=== PATIENT | male | born 1955 | race Caucasian/White ===

== ENCOUNTER 2017-10-22 13:31 | Inpatient (IN) | payer MEDICAID ==
[~2017-10-22] VITALS: Ht 177.8 cm; Wt 79.8 kg
--- NOTE | 2017-10-22 13:35 | NUR ---
PRESENTS TO ER C/O CHEST PAIN AND SOB X 3 DAYS. PATIENT IS A/OX 4. BREATHING EVEN AND UNLABORED AT THIS TIME. NO SOB. VITALS STABLE, NAD. PATIENT ALSO HAS LEFT FOOT WOUND, WITH PRIOR AMPUTATION OF LEFT 1ST AND 2ND DIGITS. FOOT IS RED AND SWOLLEN. SAFETY AND COMFORT MEASURES IN PLACE. AWAITING MD ORDERS.
--- NOTE | 2017-10-22 13:47 | NUR ---
CALLED NURSING SUP. FOR TELE BED.
[2017-10-22] MEDS ORDERED: NITROGLYCERIN PACKET 1 GM PACKET ONE (13:58)
[2017-10-22] MEDS ORDERED: ASPIRIN 325 MG TABLET ONE (13:58)
[2017-10-22] MEDS ORDERED: NITROGLYCERIN PACKET 1 GM PACKET TD ONE (14:00)
[2017-10-22] MEDS ORDERED: ASPIRIN 325 MG TABLET PO ONE (14:00)
--- NOTE | 2017-10-22 14:00 | NUR ---
NEW IV STARTED ON LAC, 20 G. BLOOD DRAWN AND SENT TO LAB.
[2017-10-22 14:06] LABS: BASOPHILS # (AUTO) 0.1 /CMM (0.0-0.2); BASOPHILS % (AUTO) 0.7 % (0.0-2.0); EOSINOPHILS # (AUTO) 0.3 /CMM (0.0-0.7); EOSINOPHILS % (AUTO) 2.8 % (0.0-6.0); HEMATOCRIT 37 % (39-51); HEMOGLOBIN 12.6 g/dL (13.5-17.5); LYMPHOCYTES # (AUTO) 3.5 /CMM (0.8-4.8); LYMPHOCYTES % (AUTO) 33.8 % (20.0-44.0); MEAN CORPUSCULAR HEMOGLOBIN 27 PG (26.0-33.0); MEAN CORPUSCULAR HGB CONC 34 g/dl (31.0-36.0); MEAN CORPUSCULAR VOLUME 80 fL (80-96); MONOCYTES # (AUTO) 0.9 /CMM (0.1-1.30); MONOCYTES % (AUTO) 8.9 % (2.0-12.0); NEUTROPHILS # (AUTO) 5.6 /CMM (1.8-8.9); NEUTROPHILS % (AUTO) 53.8 % (43.0-81.0); PLATELET COUNT (AUTO) 464 /CMM (150-450); RDW COEFFICIENT OF VARIATION 14.9 (11.5-15.0); RED BLOOD CELL COUNT(AUTO) 4.61 MIL/uL (4.5-6.0); WHITE BLOOD COUNT (AUTO) 10.4 K/uL (4.3-11.0)
--- NOTE | 2017-10-22 14:06 | NUR ---
FISHING VESSEL DECKHAND AT BEDSIDE.
[2017-10-22 14:20] LABS: CALCIUM, SERUM 9.4 mg/dL (8.5-10.1); CARBON DIOXIDE 28 mmol/L (21-32); CHLORIDE 102 mmol/L (98-107); CREATININE 0.9 mg/dL (0.6-1.3); GLUCOSE 259 mg/dL (74-106); POTASSIUM 4.1 mmol/L (3.5-5.1); SODIUM SERUM 135 mmol/L (136-145); UREA NITROGEN, BLOOD 15 mg/dL (7-18)
[2017-10-22 14:24] LABS: TROPONIN I < 0.017 ng/mL (0.00-0.056)
[2017-10-22 14:32] LABS: B-TYPE NATRIURETIC PEPTIDE 1260 PG/ML (0-125)
[2017-10-22] MEDS ORDERED: INSU100V7 SQ (14:46)
[2017-10-22] MEDS ORDERED: BLOO-668 IN (14:46)
[2017-10-22] MEDS ORDERED: INSU100V11 SQ (14:46)
[2017-10-22 14:56] LABS: D-DIMER 0.93 mg/L(FEU (0.17-0.50); INR 0.93 (0.87-1.13)
--- NOTE | 2017-10-22 15:18 | NUR ---
TELE 304-2
--- NOTE | 2017-10-22 15:20 | NUR ---
PATIENT SIGNED CONSENT FORM FOR LEFT FOOT DEBRIDEMENT PER DR. GU.
--- NOTE | 2017-10-22 15:22 | NUR ---
DR.RUTHERFORD ELEN RETAIL PERFORMANCE COACH
--- NOTE | 2017-10-22 15:25 | NUR ---
DR. GU AT BEDSIDE FOR LEFT FOOT DEBRIDEMENT.
[2017-10-22] MEDS ORDERED: VANCOMYCIN 1 GM in IV D5W 250 ML IV ONE (15:30)
[2017-10-22] MEDS ORDERED: PIPERACILLIN /TAZOBACTAM 3.375 G in IV D5W 50 ML IV ONE (15:30)
--- NOTE | 2017-10-22 15:30 | NUR ---
WOUND CARE RENDERED S/P WOUND DEBRIDEMENT.
--- NOTE | 2017-10-22 15:38 | NUR ---
REPORT GIVEN TO ALDEN WHITMAN FOR MITESH UPON ADMISSION.
[2017-10-22 16:00] VITALS: BP 176/83
--- NOTE | 2017-10-22 16:15 | NUR ---
TELE/OCCUPATIONAL THERAPY ASSISTANT. PATIENT ADMITTED FROM ER IN STABLE CONDITION FOR DIAGNOSIS OF CHEST PAIN, LEFT FOOT OSTEOMYELITIS. A/O X 3. NO SIGNS OF ACUTE DISTRESS. NO COMPLAIN OF PAIN OR DISCOMFORT. ON TELE MONITOR WITH SINUS RHYTHM IN 80'S. TOLERATED WELL. S/P DEBRIDEMENT TO LEFT FOOT IN ER TOLERATED WELL. ALL NEEDS ATTENDED TO. CALL LIGHT WITHIN REACH. WILL CONTINUE TO MONITOR TO ENSURE SAFETY.
--- NOTE | 2017-10-22 16:21 | NUR ---
PATIENT TRANSPORTED TO [facility] [place] [facility]. RN, ALDEN TO PROVIDE MITESH.
--- NOTE | 2017-10-22 16:50 | NUR ---
TELE/RN PAGED DR JOSÉ KUMAR PAGELo FOR ADMISSION ORDERS.
[2017-10-22 17:31] VITALS: BP 176/83
[2017-10-22] MEDS ORDERED: MAG HYDROX/AL HYDROX/SIMETH 30 ML UDC PO PRN (18:00)
[2017-10-22] MEDS ORDERED: DEXTROSE 50%-WATER 50 ML DISP.SYRIN IV PRN (18:00)
[2017-10-22] MEDS ORDERED: MAGNESIUM HYDROXIDE 30 ML UDC PO PRN (18:00)
[2017-10-22] MEDS ORDERED: ACETAMINOPHEN 325 MG TABLET PO PRN (18:00)
[2017-10-22] MEDS ORDERED: Z GUARD REMEDY 2 OZ OINT TP PRN (18:00)
[2017-10-22] MEDS ORDERED: ONDANSETRON HCL/PF 4 MG/2 ML VIAL IVP PRN (18:00)
[2017-10-22] MEDS ORDERED: FEE PK DOSING 1 MIN EA MC ONE (18:26)
--- NOTE | 2017-10-22 18:29 | NUR ---
TELE/RN CLOSING NOTE PATIENT IN BED IN STABLE CONDITION. A/O X 4. NO SIGNS OF ACUTE DISTRESS. NO COMPLAIN OF PAIN OR DISCOMFORT. ON TELE MONITOR WITH SINUS RHYTHM IN 80'S. ALL NEEDS ATTENDED TO. CALL LIGHT WITHIN REACH. WILL ENDORSE TO NEXT SHIFT FOR CONTINUITY OF CARE.
[2017-10-22] MEDS ORDERED: CLONIDINE HCL 0.1 MG TABLET PO PRN (18:30)
[2017-10-22] MEDS ORDERED: MORPHINE SULFATE INJ 4 MG/ML DISP.SYRIN IV PRN (18:30)
[2017-10-22] MEDS: METOPROLOL TARTRATE 25 MG TABLET PO SCH ×2 (18:36→20:39)
[2017-10-22] MEDS: HYDROCODONE/APAP 5/325MG 1 EACH TABLET PO PRN (18:36)
--- NOTE | 2017-10-22 19:30 | NUR ---
POLYTECHNIC REGISTRAR NOTE: PATIENT RESTING IN BED, NO ACUTE DISTRESS NOTED. BREATHING EVEN AND UNLABORED, NO SOB NOTED. IV TO LAC IN PLACE. DRESSING TO LEFT FOOT IN PLACE, NO BLEEDING NOTED. TELE READING SR 80. BED LOCKED AND IN LOWEST POSITION, CALL LIGHT IN REACH. WILL CONTINUE TO MONITOR.
[2017-10-22 20:00] VITALS: BP 154/88
[2017-10-22] MEDS: NITROGLYCERIN PACKET 1 GM PACKET TOP SCH (20:39)
[2017-10-22] MEDS: ENOXAPARIN SODIUM 40 MG/0.4 ML DISP.SYRIN SQ SCH (20:43)
[2017-10-22] MEDS ORDERED: METOPROLOL TARTRATE 25 MG TABLET PO SCH (21:00)
[2017-10-22] MEDS: BLOOD SUGAR DIAGNOSTIC 1 EACH STRIP VI SCH (22:09)
[2017-10-22] MEDS: *INSULIN REGULAR(HUMULIN R)HUM 100 UNIT/ML VIAL SQ PRN (22:10)
--- NOTE | 2017-10-22 22:30 | NUR ---
C4 PLANNER NOTE: PATIENT BLOOD SUGAR LEVEL 331 MG/DL, PATIENT TO RECEIVE 8 UNITS PER SLIDING SCALE. NO S/S OF HYPERGLYCEMIA NOTED, WILL CONTINUE TO MONITOR.
[2017-10-22] MEDS ORDERED: PIPERACILLIN /TAZOBACTAM 3.375 G VIAL IV ONE (23:50)
[2017-10-23] VITALS: BP 143/77
[2017-10-23] MEDS: PIPERACILLIN /TAZOBACTAM 3.375 G in IV NS 0.9% 50 ML IV SCH ×5 (00:19→23:55)
[2017-10-23] MEDS: HYDROCODONE/APAP 5/325MG 1 EACH TABLET PO PRN ×3 (00:25→21:25)
--- NOTE | 2017-10-23 00:30 | NUR ---
PAINT GRINDER [employer] [place] NOTE: PATIENT COMPLAINS OF PAIN TO CHEST, NON RADIATING, 02/22, NORCO 5/325MG 1 TAB ORAL GIVEN PER MD ORDER. WILL CONTINUE TO MONITOR.
[2017-10-23] MEDS: VANCOMYCIN 1 GM in IV NS 0.9% 250 ML IV SCH ×3 (00:58→17:04)
[2017-10-23 05:54] LABS: BASOPHILS # (AUTO) 0.1 /CMM (0.0-0.2); BASOPHILS % (AUTO) 0.9 % (0.0-2.0); EOSINOPHILS # (AUTO) 0.3 /CMM (0.0-0.7); EOSINOPHILS % (AUTO) 2.8 % (0.0-6.0); HEMATOCRIT 32 % (39-51); HEMOGLOBIN 10.8 g/dL (13.5-17.5); LYMPHOCYTES # (AUTO) 4.1 /CMM (0.8-4.8); LYMPHOCYTES % (AUTO) 33.4 % (20.0-44.0); MEAN CORPUSCULAR HEMOGLOBIN 28 PG (26.0-33.0); MEAN CORPUSCULAR HGB CONC 33 g/dl (31.0-36.0); MEAN CORPUSCULAR VOLUME 83 fL (80-96); MONOCYTES # (AUTO) 1.3 /CMM (0.1-1.30); MONOCYTES % (AUTO) 10.6 % (2.0-12.0); NEUTROPHILS # (AUTO) 6.4 /CMM (1.8-8.9); NEUTROPHILS % (AUTO) 52.3 % (43.0-81.0); PLATELET COUNT (AUTO) 359 /CMM (150-450); RDW COEFFICIENT OF VARIATION 15.5 (11.5-15.0); RED BLOOD CELL COUNT(AUTO) 3.92 MIL/uL (4.5-6.0); WHITE BLOOD COUNT (AUTO) 12.3 K/uL (4.3-11.0)
[2017-10-23] MEDS ORDERED: PIPERACILLIN /TAZOBACTAM 3.375 G VIAL IV ONE (05:56)
[2017-10-23] MEDS: NITROGLYCERIN PACKET 1 GM PACKET TOP SCH ×3 (06:00→21:23)
--- NOTE | 2017-10-23 06:30 | NUR ---
MANAGER RENTAL NOTE: PATIENT RESTING IN BED, NO ACUTE DISTRESS NOTED. BREATHING EVEN AND UNLABORED, NO SOB NOTED. IV TO LAC IN PLACE. DRESSING TO LEFT FOOT CHANGED WITH WET TO DRY DRESSING AND WRAPPED WITH KERLIX AND SECURED WITH TAPE. TELE READING SR 70-80. PATIENT BLOOD SUGAR LEVEL 196 MG/DL, TO RECEIVE 3 UNITS PER SLIDING SCALE. NO S/S OF HYPER/HYPOGLYCEMIA NOTED. BED LOCKED AND IN LOWEST POSITION, CALL LIGHT IN REACH. WILL ENDORSE TO DAY NURSE TO CONTINUE WITH PLAN OF CARE.
[2017-10-23] MEDS: BLOOD SUGAR DIAGNOSTIC 1 EACH STRIP VI SCH ×4 (06:35→21:14)
[2017-10-23 06:51] LABS: CALCIUM, SERUM 8.5 mg/dL (8.5-10.1); MAGNESIUM 1.7 mg/dL (1.8-2.4); PHOSPHORUS 3.8 mg/dL (2.5-4.9); POTASSIUM 4.3 mmol/L (3.5-5.1)
[2017-10-23] MEDS: INSULIN REGULAR, HUMAN 100 UNIT/ML 3 ML VIAL SQ PRN ×2 (06:51→17:34)
--- NOTE | 2017-10-23 07:24 | NUR ---
GRADER TENDER OPENING NOTES: PATIENT RECEIVED RESTING IN BED AT MODERATAE HIGH BACKREST POSITION IN NO ACUTE SIGNS OF DISTRESS. A/O X3, SAME VERBALLY RESPONSIVE, NO C/O PAIN OR DISCOMFORTS AT THIS TIME. ON ROOM AIR, BREATHING EVEN AND UNLABORED. ON TELE-MONITORING WITH CURRENT READING OF SR WITH HR ON THE 70'S. IV ACCESS AT LAC IN PLACE AND PATENT. DRESSING TO LEFT FOOT IN PLACE, NO BLEEDING NOTED. BED LOCKED AND IN LOWEST POSITION, CALL LIGHT IN REACH. WILL CONTINUE TO MONITOR.
[2017-10-23 08:00] VITALS: BP 149/73
[2017-10-23] MEDS: METOPROLOL TARTRATE 25 MG TABLET PO SCH ×2 (08:53→21:25)
[2017-10-23 10:47] LABS: CHOLESTEROL 188 mg/dL (<200); HDL CHOLESTEROL 28 mg/dL (40-60); LDL 140 mg/dL (0-99); TRIGLYCERIDES 148 mg/dL (30-150)
[2017-10-23] MEDS: ASPIRIN EC 81 MG TABLET.DR PO SCH (11:27)
[2017-10-23] MEDS: BENAZEPRIL HCL 10 MG TABLET PO SCH (11:27)
[2017-10-23] MEDS: *INSULIN REGULAR(HUMULIN R)HUM 100 UNIT/ML VIAL SQ PRN ×3 (11:46→22:04)
[2017-10-23 12:00] VITALS: BP_SYST 135; BP_SYST 136; BP_DIAS 69; BP_DIAS 75
[2017-10-23] MEDS: Magnesium 1GM/D5W 100ML PREMIX 100 ML IV SCH ×2 (13:44→15:21)
[2017-10-23 16:00] VITALS: BP 124/61
--- NOTE | 2017-10-23 18:32 | NUR ---
PACKAGING DESIGN ENGINEER CLOSING NOTES: PATIENT RESTING COMFORTABLY IN BED. A/O X4. ABLE TO VERBALIZED NEEDS. NO SIGNIFICANT CHANGES IN CINDITION NOTED DURING THE DAY. ON ROOM AIR, BREATHING EVEN AND UNLABORED. ON TELE-MONITORING WITH CURRENT READING OF SR WITH HR ON THE 70'S. IV ACCESS AT LAC INTACT AND PATENT. DRESSING TO LEFT FOOT IN PLACE, NO BLEEDING NOTED. KEPT BED LOCKED AND IN LOWEST POSITION, CALL LIGHT WITHIN REACH. ALL NEEDS AND CARE ATTENDED WELL. WILL ENDORSED TO GENERATION MECHANIC HELPER FOR MITESH.
[2017-10-23] MEDS: LACTOBACILLUS RHAMNOSUS GG 1 EACH CAP.SPRINK PO SCH (18:41)
--- NOTE | 2017-10-23 19:30 | NUR ---
TALENT SOURCER OPENING NOTE RECEIVED PATIENT SITTING ON BED WITH FEET DANGLING. A/O X4. ABLE TO MAKE NEEDS KNOWN. ON ROOM AIR, BREATHING EVEN AND UNLABORED. DENIES SOB AND CHEST PAIN AT THIS TIME. ON TELE-MONITORING WITH SR WITH HR ON THE 70'S. IV ACCESS AT LAC 20G, FLASHED WITH NS, INTACT AND PATENT. DRESSING TO LEFT FOOT IN PLACE, INTACT, NO SIGN OF BLEEDING. SAFETY MEASURES IN PLACE, BED IN LOW LOCKED POSITION, SIDE RAILS UPX2, CALL LIGHT WITHIN EASY REACH, WILL CONTINUE TO MONITOR.
[2017-10-23 20:00] VITALS: BP 137/70
[2017-10-23] MEDS: ENOXAPARIN SODIUM 40 MG/0.4 ML DISP.SYRIN SQ SCH (21:24)
[2017-10-23] MEDS ORDERED: ATORVASTATIN 10 MG TABLET PO SCH (22:00)
[2017-10-24] VITALS: BP 127/62
[2017-10-24] MEDS: VANCOMYCIN 1 GM in IV NS 0.9% 250 ML IV SCH ×3 (00:37→16:46)
[2017-10-24 04:00] VITALS: BP 144/72
[2017-10-24] MEDS: NITROGLYCERIN PACKET 1 GM PACKET TOP SCH ×3 (05:57→21:18)
[2017-10-24] MEDS: PIPERACILLIN /TAZOBACTAM 3.375 G in IV NS 0.9% 50 ML IV SCH ×4 (05:57→23:53)
[2017-10-24 07:05] LABS: CALCIUM, SERUM 8.7 mg/dL (8.5-10.1); CREATININE 0.9 mg/dL (0.6-1.3); POTASSIUM 4.3 mmol/L (3.5-5.1)
--- NOTE | 2017-10-24 07:10 | NUR ---
BLEACHER LARD CLOSING NOTE PATIENT IN BED RESTING COMFORTABLY, A/O X4. ABLE TO MAKE NEEDS KNOWN. ON ROOM AIR, BREATHING EVEN AND UNLABORED. DENIES SOB AND CHEST PAIN AT THIS TIME. ON TELE-MONITORING WITH SR AND HR IN 70'S. IV ACCESS AT LAC 20G, FLASHED WITH NS, INTACT AND PATENT. DRESSING TO LEFT FOOT IN PLACE, INTACT, NO SIGN OF BLEEDING. ABLE TO AMBULATE TO THE BATHROOM INDEPENDENTLY. ALL NEEDS ATTENDED, PATIENT KEPT CLEAN AND COMFORTABLE. SAFETY MEASURES IN PLACE, BED IN LOW LOCKED POSITION, SIDE RAILS UPX2, CALL LIGHT WITHIN EASY REACH, WILL ENDORSE TO AM NURSE FOR MITESH.
--- NOTE | 2017-10-24 07:12 | NUR ---
STEAM CLOTHES PRESS OPERATOR OPENING NOTES RECEIVED PT FROM NIGHTSHIFT NURSE IN STABLE CONDITION. PT IS A/O X3. NO SOB OR SIGNS OF DISTRESS NOTED. HE DENIES ANY CHEST PAIN. SINUS RHYTHM ON TELE MONITORING WITH A HR OF 78. DRESSING TO LEFT FOOT NOTED TO BE CLEAN, DRY AND INTACT. IV TO LEFT AC NOTED TO BE PATENT AND INTACT. NO REDNESS OR SIGNS OF INFILTRATION NOTED. BED IN LOW LOCKED POSITION, SIDE RAILS UP X2, CALL LIGHT WITHIN REACH. WILL CONTINUE TO MONITOR.
[2017-10-24] MEDS: BLOOD SUGAR DIAGNOSTIC 1 EACH STRIP VI SCH ×4 (07:36→21:16)
[2017-10-24] MEDS: INSULIN REGULAR, HUMAN 100 UNIT/ML 3 ML VIAL SQ PRN ×2 (07:42→12:01)
[2017-10-24 08:00] VITALS: BP 139/68
[2017-10-24] MEDS: BENAZEPRIL HCL 10 MG TABLET PO SCH (09:28)
[2017-10-24] MEDS: LACTOBACILLUS RHAMNOSUS GG 1 EACH CAP.SPRINK PO SCH ×2 (09:29→16:45)
[2017-10-24] MEDS: METOPROLOL TARTRATE 25 MG TABLET PO SCH ×2 (09:29→21:17)
[2017-10-24] MEDS: ASPIRIN EC 81 MG TABLET.DR PO SCH (09:29)
[2017-10-24] MEDS: HYDROCODONE/APAP 5/325MG 1 EACH TABLET PO PRN ×2 (09:39→21:17)
[2017-10-24 16:00] VITALS: BP 152/81
--- NOTE | 2017-10-24 18:46 | NUR ---
MS RN CLOSING NOTES PT REMAIN IN STABLE CONDITION. ALL NEEDS WERE MET DURING SHIFT AND ORDERS CARRIED OUT ACCORDINGLY. WOUND AND SKIN CARE RENDERED. ALL DUE MEDS WERE GIVEN. PAIN PROPERLY MANAGED WITH MEDICATIONS. SAFETY MEASURES REMAIN IN PLACE. WILL ENDORSE TO NIGHTSHIFT NURSE FOR MITESH
--- NOTE | 2017-10-24 19:30 | NUR ---
MS RN OPENING NOTE RECEIVED PATIENT IN BED RESTING COMFORTABLY, A/O X4 . ABLE TO MAKE NEEDS KNOWN. ON ROOM AIR, BREATHING EVEN AND UNLABORED. DENIES SOB AND CHEST PAIN AT THIS TIME. ON MED-SURGE. IV ACCESS AT LAC 20G SL, FLASHED WITH NS, INTACT AND PATENT. DRESSING TO LEFT FOOT IN PLACE, INTACT, NO SIGN OF BLEEDING. ABLE TO AMBULATE TO THE BATHROOM INDEPENDENTLY. PATIENT KEPT CLEAN AND COMFORTABLE. SAFETY MEASURES IN PLACE, BED IN LOW LOCKED POSITION, SIDE RAILS UPX2, CALL LIGHT WITHIN EASY REACH, WILL CONTINUE TO MONITOR.
[2017-10-24 20:00] VITALS: BP 128/75
[2017-10-24] MEDS: ENOXAPARIN SODIUM 40 MG/0.4 ML DISP.SYRIN SQ SCH (21:00)
--- NOTE | 2017-10-24 21:00 | NUR ---
MS RN NOTES PATIENT 2[address] WAS HELD DUE TO ANTICIPATED PROCEDURE TOMORROW. PER DR. LOZADA PATIENT IS GOING TO HAVE CTA OF ABDOMINAL AORTA.
[2017-10-24] MEDS: ATORVASTATIN 10 MG TABLET PO SCH (21:16)
[2017-10-24] MEDS: *INSULIN REGULAR(HUMULIN R)HUM 100 UNIT/ML VIAL SQ PRN (21:28)
[2017-10-25] MEDS: VANCOMYCIN 1 GM in IV NS 0.9% 250 ML IV SCH ×2 (00:41→08:00)
--- NOTE | 2017-10-25 01:30 | NUR ---
MS RN NOTES PATIENT 'S IV LINE INFILTRATED AND STARTED LEAKING WHILE RECEIVING VANCOMYCIN. STOPPED THE INFUSION IMMEDIATELY, ELEVATED THE EXTREMITY, PLACED ICE PACK ON THE EFFECTED SITE. PLACED NEW IV LINE ON THE OPPOSITE ARM, R FA 20G, REMOVED THE PREVIOUS IV LINE. CONTINUED VANCOMYCIN INFUSION. WILL CONTINUE TO MONITOR THE EFFECTED SITE.
[2017-10-25] MEDS: PIPERACILLIN /TAZOBACTAM 3.375 G in IV NS 0.9% 50 ML IV SCH ×2 (05:03→12:41)
[2017-10-25] MEDS: NITROGLYCERIN PACKET 1 GM PACKET TOP SCH ×3 (05:13→21:55)
--- NOTE | 2017-10-25 06:35 | NUR ---
MS RN CLOSING NOTE PATIENT IN BED RESTING COMFORTABLY, A/O X4. ABLE TO MAKE NEEDS KNOWN. ON ROOM AIR, BREATHING EVEN AND UNLABORED. DENIES SOB AND CHEST PAIN AT THIS TIME. ON MED-SURGE STATUS. PATIENT NPO SINCE MIDNIGHT FOR CTA OF ABDOMINAL AORTA. IV ACCESS AT R FOREARM 20G, FLASHED WITH NS, INTACT AND PATENT. DRESSING TO LEFT FOOT IN PLACE, INTACT, NO SIGN OF BLEEDING. ABLE TO AMBULATE TO THE BATHROOM INDEPENDENTLY. ALL NEEDS ATTENDED, PATIENT KEPT CLEAN AND COMFORTABLE. SAFETY MEASURES IN PLACE, BED IN LOW LOCKED POSITION, SIDE RAILS UPX2, CALL LIGHT WITHIN EASY REACH, WILL ENDORSE TO AM NURSE FOR MITESH.
[2017-10-25] MEDS: BLOOD SUGAR DIAGNOSTIC 1 EACH STRIP VI SCH ×4 (07:06→22:12)
[2017-10-25] MEDS: INSULIN REGULAR, HUMAN 100 UNIT/ML 3 ML VIAL SQ PRN ×3 (07:10→18:19)
--- NOTE | 2017-10-25 07:16 | NUR ---
MS RN NOTE PATIENT AC BLOOD GLUCOSE WAS MEASURED, READING WAS 174. SCANNED THE INSULIN WITH 3 UNIT DOSE AND SAVED. RIGHT AFTER SAVING RECALLED PATIENT IS NPO STATUS SINCE MIDNIGHT. INSULIN WAS NOT ADMINISTERED. MEDICATION ADMINISTRATION WAS UNDONE.
[2017-10-25 07:19] LABS: CALCIUM, SERUM 8.3 mg/dL (8.5-10.1); CREATININE 0.9 mg/dL (0.6-1.3); POTASSIUM 4.2 mmol/L (3.5-5.1)
--- NOTE | 2017-10-25 07:30 | NUR ---
PT RECEIVED RESTING COMFORTABLY IN BED. NO S/S OR C/O PAIN OR DISTRESS NOTED. SIDE RAILS UP X2. CALL LIGHT LEFT WITHIN REACH. WILL CONTINUE PLAN OF CARE.
[2017-10-25 08:00] VITALS: BP 125/62
[2017-10-25] MEDS ORDERED: CT SWABBABLE VALVE TRANS SET 1 EA INFUS.SET MC ONE (09:18)
[2017-10-25] MEDS ORDERED: IV NS 0.9% 250 ML IV ONE (09:18)
[2017-10-25] MEDS ORDERED: IOHEXOL-350 100 ML VIAL IV ONE (09:18)
[2017-10-25] MEDS: METOPROLOL TARTRATE 25 MG TABLET PO SCH ×2 (09:55→22:08)
[2017-10-25] MEDS: LACTOBACILLUS RHAMNOSUS GG 1 EACH CAP.SPRINK PO SCH ×2 (09:55→17:18)
[2017-10-25] MEDS: BENAZEPRIL HCL 10 MG TABLET PO SCH (09:55)
[2017-10-25] MEDS: ASPIRIN EC 81 MG TABLET.DR PO SCH (09:56)
--- NOTE | 2017-10-25 10:33 | NUR ---
WOUND CARE CONSULT WOUND CARE RECEIVED CONSULT FOR LEFT FOOT WOUND. WOUND CARE WILL DEFER CONSULT AND TREATMENT PLAN TO DPM DR GU AT THIS TIME HE IS CURRENTLY FOLLOWING. PATIENT WITH MELLISA OF 20. CALL PLACED TO DPM TO CLARIFY TREATMENT ORDERS. WILL AWAIT PHONE CALL BACK.
--- NOTE | 2017-10-25 11:05 | NUR ---
CNC SET UP OPERATOR TREATMENT ORDERS CLARIFIED WITH DR GU.
[2017-10-25] MEDS: DAKINS QUARTER STRENGTH (0.125%) 480 ML BOTTLE TOP SCH (14:33)
[2017-10-25] MEDS: GENTAMICIN 0.1% OINT 15 GM TUBE TP SCH (14:33)
[2017-10-25] MEDS ORDERED: BISACODYL SUPP (10 MG) 10 MG/SUPP.RECT SUPP.RECT RC PRN (15:00)
[2017-10-25 16:00] VITALS: BP 113/68
--- NOTE | 2017-10-25 18:55 | NUR ---
CHANGE OF SHIFT REPORT PT RESTING COMFORTABLY IN BED. NO S/S OR C/O PAIN OR DISTRESS NOTED. SIDE RAILS UP X2, CALL LIGHT LEFT WITHIN REACH. PT KEPT CLEAN, DRY, AND COMFORTABLE. NO SIGNIFICANT CHANGES SINCE PREVIOUS SHIFT. WILL GIVE REPORT TO GORAN WHITMAN.
[2017-10-25] MEDS: LEVOFLOXACIN (750 MG) 750 MG TABLET PO SCH (19:02)
--- NOTE | 2017-10-25 19:50 | NUR ---
MS RN NOTE: PATIENT RESTING IN BED, NO ACUTE DISTRESS NOTED. BREATHING EVEN AND UNLABORED, NO SOB NOTED. IV TO RFA IN PLACE. DRESSING TO LEFT FOOT IN PLACE, NO BLEEDING NOTED. NO S/S OF HYPER/HYPOGLYCEMIA NOTED. INFORMED PATIENT THAT HE WILL BE NPO AFTER MIDNIGHT AND UNABLE TO EAT OR DRINK FOR CT OF HEART TOMORROW. CONSENTS SIGNED AND IN CHART. BED LOCKED AND IN LOWEST POSITION, CALL LIGHT IN REACH. WILL CONTINUE TO MONITOR.
[2017-10-25 20:00] VITALS: BP 130/79
[2017-10-25] MEDS: AMPICILLIN SODIUM IV SCH (21:55)
[2017-10-25] MEDS: ATORVASTATIN 10 MG TABLET PO SCH (21:55)
[2017-10-25] MEDS: NS 0.9% IV SCH (21:55)
[2017-10-25] MEDS: HYDROCODONE/APAP 5/325MG 1 EACH TABLET PO PRN (21:56)
[2017-10-25] MEDS: ENOXAPARIN SODIUM 40 MG/0.4 ML DISP.SYRIN SQ SCH (21:57)
[2017-10-25] MEDS: INSULIN GLARGINE, 100 UNIT/ML CARTRIDGE SQ SCH (22:09)
[2017-10-25] MEDS: *INSULIN REGULAR(HUMULIN R)HUM 100 UNIT/ML VIAL SQ PRN (22:09)
--- NOTE | 2017-10-25 22:15 | NUR ---
MS RN NOTE: PATIENT BLOOD SUGAR LEVEL 205 MG/DL, LANTUS 20UNITS GIVEN PER MD ORDER AND TO RECEIVE 4 UNITS OF INSULIN PER SLIDING SCALE. SNACKS PROVIDED AND FOR PATIENT TO HAVE BEFORE MIDNIGHT. NO S/S OF HYPER/HYPOGLYCEMIA NOTED. WILL CONTINUE TO MONITOR.
--- NOTE | 2017-10-26 00:15 | NUR ---
MS RN NOTE: PATIENT NPO FOR CT OF HEART IN MORNING. PATIENT ATE A SANDWICH AND HAD JUICE. INSTRUCTED PATIENT THAT HE CAN NOT EAT OR DRINK ANYMORE. WILL CONTINUE TO MONITOR.
[2017-10-26] MEDS: AMPICILLIN SODIUM IV SCH ×3 (05:49→21:43)
[2017-10-26] MEDS: NS 0.9% IV SCH ×3 (05:49→21:43)
[2017-10-26] MEDS: NITROGLYCERIN PACKET 1 GM PACKET TOP SCH ×2 (05:49→13:00)
--- NOTE | 2017-10-26 06:30 | NUR ---
MS RN NOTE: PATIENT RESTING IN BED, NO ACUTE DISTRESS NOTED. BREATHING EVEN AND UNLABORED, NO SOB NOTED. IV TO RFA IN PLACE. DRESSING TO LEFT FOOT IN PLACE. BLOOD SUGAR LEVEL 175 MG/DL, NO INSULIN TO BE GIVEN SINCE PATIENT NPO. NO S/S OF HYPER/HYPOGLYCEMIA NOTED. PATIENT FOR CT OF HEART TODAY, CONSENTS SIGNED AND IN CHART. BED LOCKED AND IN LOWEST POSITION, CALL LIGHT IN REACH. WILL ENDORSE TO DAY NURSE TO CONTINUE WITH PLAN OF CARE.
[2017-10-26] MEDS: BLOOD SUGAR DIAGNOSTIC 1 EACH STRIP VI SCH ×4 (06:40→21:52)
[2017-10-26 07:37] LABS: CALCIUM, SERUM 9.1 mg/dL (8.5-10.1); CREATININE 0.8 mg/dL (0.6-1.3); POTASSIUM 4.2 mmol/L (3.5-5.1)
[2017-10-26 08:00] VITALS: BP 145/80
--- NOTE | 2017-10-26 08:25 | NUR ---
MS RN RECEIVED ON BED, AWAKE,ALERT,ORIENTED X4,NOT IN ANY FORM OF DISTRESS, RESPIRATIONS EVEN AND UNLAOBRED,NO SOB NOTED, LUNGS RE CLEAR,ABDOMEN SOFT, POSITIVE BOWEL SOUNDS,DENIES PAIN AT THIS TIME.
[2017-10-26] MEDS ORDERED: VANCOMYCIN 1 GM in IV NS 0.9% 250 ML IV SCH (09:00)
--- NOTE | 2017-10-26 09:00 | NUR ---
MS RN PATIENT WENT DOWN FOR CT ANGIO,NPO AT THIS TIME.
[2017-10-26] MEDS ORDERED: METOPROLOL TARTRATE INJ 5 MG/5 ML AMPUL ONE (09:27)
[2017-10-26] MEDS ORDERED: IOHEXOL-350 100 ML VIAL IV ONE (09:52)
[2017-10-26] MEDS ORDERED: IV NS 0.9% 250 ML IV ONE (09:53)
[2017-10-26] MEDS ORDERED: CT SWABBABLE VALVE TRANS SET 1 EA INFUS.SET MC ONE (09:53)
--- NOTE | 2017-10-26 10:10 | NUR ---
MS RN PATIENT CAME BACK, [facility] SERVED,DUE MEDS GIVEN,TOLERATED WELL.
[2017-10-26] MEDS: METOPROLOL TARTRATE 25 MG TABLET PO SCH ×2 (10:52→21:44)
[2017-10-26] MEDS: ASPIRIN EC 81 MG TABLET.DR PO SCH (10:52)
[2017-10-26] MEDS: BENAZEPRIL HCL 10 MG TABLET PO SCH (10:53)
[2017-10-26] MEDS: DAKINS QUARTER STRENGTH (0.125%) 480 ML BOTTLE TOP SCH (10:53)
[2017-10-26] MEDS: LACTOBACILLUS RHAMNOSUS GG 1 EACH CAP.SPRINK PO SCH ×2 (10:53→17:45)
[2017-10-26] MEDS: GENTAMICIN 0.1% OINT 15 GM TUBE TP SCH (10:56)
--- NOTE | 2017-10-26 12:00 | NUR ---
MS RN PATIENT WAS TRANSFERRED TO ROOM 324 BED 2, REFUSED ACCU CHECK AT THIS TIME, AT BEDSIDE.
--- NOTE | 2017-10-26 14:30 | NUR ---
MS RN DRESSING TO RIGHT FOOT DONE,ALL NEEDS ATTENDED.
[2017-10-26 16:00] VITALS: BP 164/76
--- NOTE | 2017-10-26 17:20 | NUR ---
MS RN BLOOD SUGAR - 213 - COVERAGE GIVEN,NO DISTRESS NOTED.
[2017-10-26] MEDS: LEVOFLOXACIN (750 MG) 750 MG TABLET PO SCH (17:45)
[2017-10-26] MEDS: INSULIN REGULAR, HUMAN 100 UNIT/ML 3 ML VIAL SQ PRN ×2 (17:46→21:54)
--- NOTE | 2017-10-26 19:30 | NUR ---
MSRN RESTING QUIETLY, TREAMENT PLAN AND MEDICATION REGIMEN EXPLAINED TO PATIENT WELL UNDERSTOOD. VERBALIZES LEFT FOOT PAIN, S/P DEBRIDEMENT BY DR. RUIZ FEW DAYS AGO. WANTED PAIN MEDS WITH HIS 2100 MEDS. NO OTHER NEEDS MADE.
[2017-10-26 20:00] VITALS: BP 159/72
--- NOTE | 2017-10-26 21:10 | NUR ---
RN MS NOTES, RECEIVED PATIENT FROM J CARLOS LUNDBERG FOR CONTINUITY OF CARE, PATIENT IN BED AWAKE, ALERT AND ORIENTED, ABLE TO VERBALIZED NEEDS AND CONCERNS, BREATHING EVEN AND UNLABORED, NO SOB/ACUTE DISTRESS NOTED AT THIS TIME, BED LOCKED AND IN LOWEST POSITION, CALL LIGHT W/I REACH, WILL CONTINUE TO MONITOR CLOSELY.
[2017-10-26] MEDS: ATORVASTATIN 10 MG TABLET PO SCH (21:45)
[2017-10-26] MEDS: NITROGLYCERIN 30 GM TUBE TP SCH (21:46)
[2017-10-26] MEDS: HYDROCODONE/APAP 5/325MG 1 EACH TABLET PO PRN (21:46)
[2017-10-26] MEDS: ENOXAPARIN SODIUM 40 MG/0.4 ML DISP.SYRIN SQ SCH (21:47)
[2017-10-26] MEDS: INSULIN GLARGINE, 100 UNIT/ML CARTRIDGE SQ SCH (21:56)
[2017-10-27] MEDS: NS 0.9% IV SCH ×3 (04:50→17:13)
[2017-10-27] MEDS: AMPICILLIN SODIUM IV SCH ×3 (04:50→17:13)
[2017-10-27] MEDS: NITROGLYCERIN 30 GM TUBE TP SCH (04:51)
--- NOTE | 2017-10-27 07:00 | NUR ---
RN MS NOTES, PATIENT IN BED AWAKE, ALERT AND ORIENTED, ABLE TO VERBALIZED NEEDS AND CONCERNS, BREATHING EVEN AND UNLABORED, NO SOB/ACUTE DISTRESS NOTED AT THIS TIME, BED, NO SIGNIFICANT MITESH THROUGHOUT THE SHIFT, LOCKED AND IN LOWEST POSITION, CALL LIGHT W/I REACH, WILL ENDORSE TO ONCOMING NURSE FOR CONTINUITY OF CARE
[2017-10-27] MEDS: BLOOD SUGAR DIAGNOSTIC 1 EACH STRIP VI SCH ×3 (07:30→17:07)
[2017-10-27 08:00] VITALS: BP 144/66
--- NOTE | 2017-10-27 08:00 | NUR ---
MS RN RECEIVED ON BED,AWAKE,ALERT,ORIENTED X4,NOT IN ANY FORM OF DISTRESS,RESPIRATIONS EVEN AND UNLABORED,NO SOB NOTED, LUNGS ARE CLEAR,ABDOMEN SOFT,POSITIVE BOWEL SOUNDS,DENIES PAIN AT THIS TIME,ALL NEEDS ATTENDED.
--- NOTE | 2017-10-27 09:00 | NUR ---
MS WHITMAN BREAKFAST SERVED,DUE MEDS GIVEN,TOLERATED WELL.
[2017-10-27] MEDS: ASPIRIN EC 81 MG TABLET.DR PO SCH (09:35)
[2017-10-27] MEDS: LEVOFLOXACIN (750 MG) 750 MG TABLET PO SCH (09:35)
[2017-10-27] MEDS: LACTOBACILLUS RHAMNOSUS GG 1 EACH CAP.SPRINK PO SCH ×2 (09:35→17:07)
[2017-10-27] MEDS: BENAZEPRIL HCL 10 MG TABLET PO SCH (09:36)
[2017-10-27] MEDS: METOPROLOL TARTRATE 25 MG TABLET PO SCH (09:36)
[2017-10-27] MEDS: GENTAMICIN 0.1% OINT 15 GM TUBE TP SCH (09:37)
[2017-10-27] MEDS: DAKINS QUARTER STRENGTH (0.125%) 480 ML BOTTLE TOP SCH (09:37)
[2017-10-27] MEDS ORDERED: AMLODIPINE BESYLATE 5 MG TABLET PO SCH (10:30)
[2017-10-27] MEDS ORDERED: BENA10TA2 PO (12:40)
[2017-10-27] MEDS ORDERED: LEVO750T21 PO (12:40)
[2017-10-27] MEDS ORDERED: AMLO5TAB2 PO (12:40)
[2017-10-27] MEDS ORDERED: ASPI-1152 PO (12:40)
[2017-10-27] MEDS ORDERED: METO25TA20 PO (12:40)
[2017-10-27] MEDS ORDERED: ATOR10TA PO (12:40)
[2017-10-27] MEDS: INSULIN REGULAR, HUMAN 100 UNIT/ML 3 ML VIAL SQ PRN ×2 (12:50→17:12)
--- NOTE | 2017-10-27 14:30 | NUR ---
MS RN NEW PICC LINE INSERTED BY TRAN BRYAN AT LEFT UPPER ARM W/ GOOD VENOUS RETURN, SAYS NO NEED FOR X RAY CONFIRMATION AND OK TO USE PER CHARGE NURSE.
[2017-10-27 16:00] VITALS: BP 148/67
--- NOTE | 2017-10-27 16:01 | NUR ---
MS RN PATIENT IS GONNA BE DISCHARGE,ALL NEEDS ATTENDED.
--- NOTE | 2017-10-27 18:01 | NUR ---
MS RN PATIENT WILL BE DISCHARGE SOON, ATB IV WILL BE GIVEN, BEFORE HE LEAVE.
--- NOTE | 2017-10-27 19:15 | NUR ---
RN MS NOTES, RECEIVED PATIENT SITTING UP IN BED, PT IS AWAKE, ALERT AND ORIENTED X 4, ABLE TO VERBALIZE NEEDS, BREATHING EVEN AND UNLABORED, NO SOB/ACUTE DISTRESS NOTED AT THIS TIME. IV SITE ON RIGHT AC INTACT AND PATENT, NO S/S OF INFILTRATION NOTED. CHYNA PICC LINE, INTACT AND PATENT, NO S/S OF INFILTRATION NOR INFECTION NOTED. BED LOCKED AND IN LOWEST POSITION, CALL LIGHT W/I REACH, SAFETY PRECAUTIONS OBSERVED. WILL CONTINUE TO MONITOR CLOSELY. PT AWARE THAT HE'LL BE DISCHARGE AND JUST AWAITING FOR HIS SISTER TO PICK HIM UP, EXIT CARE AND PICTURES DONE BY DAY SHIFT RN.
--- NOTE | 2017-10-27 20:15 | NUR ---
MS RN NOTES PT IN BED, REMAINS AWAKE, A/O X 4 , STABLE , NO DISTRESS NOR SOB NOTED. RESPIRATION IS EVEN AND UNLABORED. NO S/S OF HYPO/ HYPERGLYCEMIA NOTED. SISTER KELSI AT BED SIDE. DISCHARGE SUMMARY AND INSTRUCTIONS EXPLAINED TO THE PT AND SISTER, VERBALIZED UNDERSTANDING. IV ON RIGHT AC REMOVED , PRESSURE APPLIED, WITH NO BLEEDING NOTED. PER DAYSHIFT RN TO DC PT WITH CHYNA PICC LINE FOR ATB IV TO BE GIVEN BY HOME [facility]ALTH. PT WILL BE SEEN BY HOME HEALTH NURSE TOMORROW PER PT. PT WAS PICKED UP BY KELSI, IN STABLE CONDITION ASSISTED PT IN AT THE HALLWAY, ABLE TO GET IN THE ELEVATOR SAFELY. ALL BELONGINGS SENT WITH THE PT.
== END 2017-10-27 20:15 | disposition home or self-care (01) | DRG 344 ==
LOC: ER 13:33 → TELE 15:37 → MED 10-24 11:51
PROVIDERS: ADMIT Internal Medicine; ATTEND Internal Medicine
PROC: 02HV33Z Insertion of Infusion Device into Superior Vena Cava, Percutaneous Approach (ICD-10-PCS; principal; 2017-10-27)
PROC: B548ZZA Ultrasonography of Superior Vena Cava, Guidance (ICD-10-PCS; principal; 2017-10-27)
DX: E11.69 Type 2 diabetes mellitus with other specified complication (principal); M86.8X7 Other osteomyelitis, ankle and foot; E11.51 Type 2 diabetes mellitus with diabetic peripheral angiopathy without gangrene; E11.40 Type 2 diabetes mellitus with diabetic neuropathy, unspecified; M00.9 Pyogenic arthritis, unspecified; E11.621 Type 2 diabetes mellitus with foot ulcer; L03.116 Cellulitis of left lower limb; E87.1 Hypo-osmolality and hyponatremia; E11.65 Type 2 diabetes mellitus with hyperglycemia; L97.429 Non-pressure chronic ulcer of left heel and midfoot with unspecified severity; E11.622 Type 2 diabetes mellitus with other skin ulcer; I10 Essential (primary) hypertension; Z79.4 Long term (current) use of insulin; L97.529 Non-pressure chronic ulcer of other part of left foot with unspecified severity; F17.200 Nicotine dependence, unspecified, uncomplicated; Z89.422 Acquired absence of other left toe(s); I25.119 Atherosclerotic heart disease of native coronary artery with unspecified angina pectoris
CPT/HCPCS: 36415; 71045-TC; 73630-TC; 75574; 80048-TC; 80061-TC; 80202-TC; 82962-TC; 83735-TC; 83880; 84100-TC; 84484-TC; 85025-TC; 85378-TC; 85730-TC; 86140-TC; 87070-TC; 87081-TC; 87186-TC; 93307-TC; 93971-TC; A4216; A4606; A6402; A6403; C1751; J0290; J1650; J1815; J2270; J2543; J3370; J3475; J3490; J7030; J7050; J7060; Q9967; Z7610